=== PATIENT | female | born 1970 | race Caucasian/White ===

== ENCOUNTER 2017-05-08 03:07 | Emergency (ER) | payer MEDICARE ==
[2017-05-08] MEDS ORDERED: Ketorolac Tromethamine 30 MG/ML VIAL ONE (03:50)
[2017-05-08] MEDS ORDERED: Acetaminophen 500 MG TAB ONE (03:50)
[2017-05-08] MEDS ORDERED: Oxymetazoline HCl 0.05% ( 15 ML ) ONE (04:18)
== END 2017-05-08 05:51 | disposition home or self-care (01) ==
LOC: ERS 03:07
DX: R51 Headache (principal)
CPT/HCPCS: 96365; 96375; J1885; J3475; J7050